=== PATIENT | female | born 1995 | race Caucasian/White ===

== ENCOUNTER 2019-03-15 14:22 | Emergency (ER) | payer MEDICAID, SELFPAY ==
[2019-03-15 14:23] VITALS: BP 115/58; PULSE 85; RESP 12; TEMP 36.4; O2SAT 100; BMI 24.5
--- NOTE | 2019-03-15 14:39 | CT_ITS ---
STUDY: CT BRAIN WITHOUT CONTRAST REASON FOR EXAM: Female, 23 years old. Recent fall and loss of consciousness. The patient is 11 weeks . The patient was shielded appropriately. RADIATION DOSAGE (If Supplied By Facility): CTDIvol = ( 60.81 ) mGy, DLP = ( 998.67 ) mGycm TECHNIQUE: Transaxial CT imaging of the brain was performed without administration of intravenous contrast material. Individualized dose optimization techniques were used for this CT. COMPARISON: No relevant priors. FINDINGS: Normal soft tissue structures. Normal calvarium. Normal size ventricles and extra-axial spaces for the patient''s age. Normal white matter tracts of the cerebral hemispheres. Normal basal ganglia and thalami. Normal brainstem. Normal cerebellum. There is no intracranial hemorrhage. There are no findings of an acute ischemic infarction. Normal visualized paranasal sinuses. CT/Brain/Head without Contrast IMPRESSION: Normal unenhanced CT scan of the brain. Electronically Signed: Alexsander Delaney, at 15:25 EST , Service support ,
--- NOTE | 2019-03-15 14:40 | ED.VISSUMM ---
- ER Visit Summary Date of Service: 03/15/19 Chief Complaint: Passed out and fell and hit her head with loss of consciousness. History of Present Illness: The patient is a 23 F currently is 11 weeks . G2, P1 Ab0. No dyspnea past medical history. States 2 days ago she had gastroenteritis with nausea, vomiting diarrhea. That is since resolved. She is holding down p.o. fluids. For her she has had an ultrasound that showed a single live IUP. She denies any vaginal bleeding or discharge. States she was at home today had a syncopal event when she fell and hit her head on the floor. Complaining hematoma in the right side of her head. She denies any abdominal pain. No chest pain or shortness of breath. Physical Examination: Male no acute distress. Vital signs are stable and afebrile. Pulse with her percent room air. Initial blood pressure 115/58. Heart rate 85. She does not look septic or toxic she is no acute distress. HEENT exam pupils round reactive laser motions are intact. Oral mucosa moist and pink. No dental injury. She has a hematoma to the right side of her scalp. Is tender. No laceration. Rest of her face and left scalp are nontender without any signs of trauma. C-spine nontender. Trachea midline. Lungs clear to auscultation bilaterally. Heart regular rhythm no murmur. Chest were nontender. Abdomen soft nontender. Normal bowel sounds no peritoneal signs. Patient is moving all 4 extremities. Neurovascularly intact. Calves are nontender without edema or cords. She has full range of motion both upper and lower extremities. Back nontender. Neurologically she is awake alert with no focal motor deficits. GCS is 15. NIH is 0. Test Results: Orthostatic vital signs are negative. Without symptoms. Cat Scan of the brain without contrast (she was shielded due to the ) is read as normal by the radiologist and reviewed by me. heart tones were 165 done by the nurse. Emergency Department Course and Treatment: Patient had a syncopal episode and hit her head. Clinically she has a normal exam other than tenderness to her right side of her scalp with a hematoma. Treatment Plan: Exam patient is doing well at 1555. Will be discharged to home. Disposition: Discharge Impression: Acute syncopal episode Currently about 11 weeks. Fall with closed head injury and right-sided hematoma This note was generated with Dragon dictation software. It may contain incorrect words, spelling, and punctuation that were not noted in review of the chart prior to signing
[2019-03-15] MEDS: Acetaminophen 500 MG Tablet 1000 MG PO (14:59)
[2019-03-15 15:46] VITALS: BP 103/59; PULSE 65; RESP 15; O2SAT 100
[2019-03-15 15:55] VITALS: BP 105/58; BP 106/58; BP 112/62; PULSE 60; PULSE 62; PULSE 75
--- NOTE | 2019-03-15 15:58 | DCINST.ED_ITS ---
ED Disposition - Plan for ED Patient: Disposition: Home or Assisted Living Instructions: HEAD INJURY, No Wake-Up (Adult) Referrals: Nellie Ro MD [STAFF PHYSICIAN] - As Needed Additional Instructions: Plenty of fluids and rest. Tylenol for headache. Follow-up with your [facility]ESS CONTROL SPECIALIST.
== END 2019-03-15 16:04 | disposition home or self-care (01) ==
PROVIDERS: Emergency Provider Emergency Medicine
DX: O21.9 Vomiting of pregnancy, unspecified (principal); O26.891 Other specified pregnancy related conditions, first trimester; O9A.211 Injury, poisoning and certain other consequences of external causes complicating pregnancy, first trimester; S09.90XA Unspecified injury of head, initial encounter; Z3A.11 11 weeks gestation of pregnancy; R55 Syncope and collapse; W19.XXXA Unspecified fall, initial encounter; Y93.9 Activity, unspecified; Y92.89 Other specified places as the place of occurrence of the external cause; Y99.9 Unspecified external cause status
CPT/HCPCS: 70450; 99282